=== PATIENT | female | born 1980 | race American Indian/Alaskan Native ===

== ENCOUNTER 2017-12-28 22:38 | Emergency (ER) | payer MEDICAID ==
[2017-12-28 22:38] VITALS: BMI 39.0
[2017-12-28 22:59] VITALS: TEMP 100
[2017-12-28] MEDS ORDERED: Iohexol 240 (50 ml) PO ONE (23:45)
[2017-12-28] MEDS ORDERED: Sodium Chloride 0.9% 1,000 ML IV STA (23:45)
--- NOTE | 2017-12-28 23:49 | ED PDOC ---
HPI: Abdomen Chief Complaint (Provider): RLQ pain since this morning History Per: Patient <Joe Lemons - Last Filed: 12/29/17 06:37> <Jeff Valverde - Last Filed: 12/30/17 02:11> Time Seen by Provider: 12/28/17 23:11 Chief Complaint (Nursing): Abdominal Pain Additional Complaint(s): 37 year old female presents with complaint of RLQ pain since this AM. Pain worsened this afternoon, she took Tylenol without relief. Pain is sharp, radiating to back, severe, 10/10 at present. She is unable to sit down due to pain, seen pacing around the room. Reports 2 episode of vomiting, last around 20 :00 after dinner. No fever or chills, but reports some dysuria as well, no hematuria, urinary frequency, or incontinence. No hx of nephrolithiasis. Surgical Hx x 1. (Joe Lemons) Supervising Attending Note - Supervising Attending Note The Documented history was done by the: Physician Screen Operator The documented physical exam was done by the: Physician Screen Operator The documented procedures were done by the: Physician Screen Operator - Attestation: I have personally seen and examined this patient.: Yes I have fully participated in the care of the patient.: Yes I have reviewed all pertinent clinical information: Yes <Jeff Valverde - Last Filed: 12/30/17 02:11> Past Medical History - Medical History PMH: Anemia, Asthma, Diabetes, HTN (no meds) - Surgical History Surgical History: (x 1) - Family History Family History: States: Unknown Family Hx <Joe Lemons - Last Filed: 12/29/17 06:37> <Jeff Valverde - Last Filed: 12/30/17 02:11> Vital Signs: Last Vital Signs Temp 100.0 F H 12/28/17 22:55 Pulse 79 12/29/17 03:47 Resp 18 12/29/17 03:47 BP 130/88 12/29/17 03:47 Pulse Ox 99 12/29/17 06:37 - Home Medications Home Medications: Ambulatory Orders Medication Instructions Recorded Fluconazole [Diflucan] 150 mg PO ONCE #1 tab 05/26/16 Ketoconazole 2% Cr [Nizoral] 60 gm TOP BID #1 tube 05/26/16 Nitrofurantoin Macrocrystals 100 mg PO BID #14 cap 05/26/16 [Macrobid] Naproxen [Naprosyn] 500 mg PO BID PRN #15 tablet 08/27/16 - Allergies Allergies/Adverse Reactions: Allergies Allergy/AdvReac Type Severity Reaction Status Date / Time shellfish derived Allergy ANAPHYLAXIS Verified 05/26/16 18:20 Review of Systems Constitutional: Negative for: Fever, Chills, Sweats ENT: Negative for: Ear Discharge, Nose Discharge Cardiovascular: Negative for: Chest Pain, Palpitations, Light Headedness Respiratory: Negative for: Cough, Shortness of Breath Gastrointestinal: Positive for: Nausea, Vomiting, Abdominal Pain Genitourinary Female: Positive for: Dysuria Skin: Negative for: Rash Neurological: Negative for: Confusion, Altered Mental Status, Headache <Joe Lemons - Last Filed: 12/29/17 06:37> Physical Exam - Reviewed Vital Signs Reviewed: Yes - Physical Exam Appears: Positive for: Uncomfortable Head Exam: Positive for: ATRAUMATIC, NORMAL INSPECTION, NORMOCEPHALIC Skin: Positive for: Normal Color Eye Exam: Positive for: EOMI, Normal appearance, PERRL Neck: Positive for: Painless ROM Cardiovascular/Chest: Positive for: Regular Rate, Rhythm, Chest Non Tender, Tachycardia. Negative for: Edema, JVD, Murmur Respiratory: Positive for: Normal Breath Sounds. Negative for: Crackles, Rales , Rhonchi, Wheezing Gastrointestinal/Abdominal: Positive for: Bowel Sounds (absent), Soft, Tenderness (significant RLQ tenderness, rovsings NEG, Psoas NEG). Negative for : Mass, Distended, Rebound Back: Positive for: Normal Inspection. Negative for: L CVA Tenderness, R CVA Tenderness Extremity: Negative for: Pedal Edema Neurologic/Psych: Positive for: Alert, engineer system administrator II-XII, Oriented <Joe Lemons Last Filed: 12/29/17 06:37> - Laboratory Results Result Diagrams: 12/28/17 00:10 12/29/17 01:10 - ECG O2 Sat by Pulse Oximetry: 99 <Joe Lemons Last Filed: 12/29/17 06:37> - Laboratory Results Result Diagrams: 12/28/17 00:10 12/29/17 01:10 <Jeff Valverde - Last Filed: 12/30/17 02:11> - Progress ED Course And Treament: 37 year odl female with RLQ pain and tenderness, dysuria x 1 day. rule out appendicitis, ovarian torsion, nephrolithiasis --CBC --CMP --UA --Urine Cx --Morphine 4mg IV --1L Bolus NS --Zofran 4mg ODT --CT A/P Case d/w Dr. Valverde CT A/P: TIME: 3:30 AM Appendicitis, nephrolithiasis, ovarian torsion ruled out. Patient reassessed, pain improved, no vomiting. Results of lab work and CT scan reviewed with patient. She is to follow up at [facility] in 2-3 days. ED precautions reviewed with pt. (Joe Lemons) Medical Decision Making <Joe Lemons - Last Filed: 12/29/17 06:37> <Jeff Valverde - Last Filed: 12/30/17 02:11> Medical Decision Making: findings on CT relayed to patient the findings are on left side, however pt pain was on the R side pt instructed to follow up with outpatient gynecology (Jeff Valverde) Disposition - Disposition Disposition Time: 06:37 <Joe Lemons - Last Filed: 12/29/17 06:37> <Jeff Valverde - Last Filed: 12/30/17 02:11> - Clinical Impression Clinical Impression: Abdominal pain - Disposition Condition: IMPROVED Additional Instructions: follow up with your primary doctor in 1-2 days return to the ED with any worsening or concerning symptoms Instructions: Nausea and Vomiting, Adult (DC) Forms: [employer] ([employer]), [facility] ED School/Work Excuse
[2017-12-29 00:02] LABS: SQUAMOUS EPITHIAL 2 /hpf (0-5); URINE BILIRUBIN NEGATIVE (NEGATIVE); URINE BLOOD NEGATIVE (NEGATIVE); URINE CLARITY SLIGHTY-CLOUDY (Clear); URINE COLOR YELLOW (YELLOW); URINE GLUCOSE (UA) NEG (Normal); URINE LEUKOCYTE ESTERASE NEG Leu/uL (Negative); URINE PROTEIN NEGATIVE (NEGATIVE); URINE UROBILINOGEN 0.2-1.0 mg/dL (0.2-1.0)
[2017-12-29] MEDS ORDERED: Iohexol 240 (50 ml) ONE (00:14)
[2017-12-29 00:46] LABS: BASO % 0.6 % (0.0-2.0); EOS # 0.2 K/uL (0.0-0.7); EOS % 3.3 % (0.0-4.0); HEMOGLOBIN 12.3 g/dL (12.0-16.0); LYMPH # 1.5 K/uL (1.0-4.3); LYMPH % 25.1 % (20.0-40.0); MEAN CELL VOLUME 86.4 fl (81.0-99.0); MEAN CORPUSCULAR HEMOGLOBIN 30.2 pg (27.0-31.0); MEAN CORPUSCULAR HGB CONC 34.9 g/dL (33.0-37.0); MEAN PLATELET VOLUME 10.1 fl (7.2-11.7); MONO # 0.6 K/uL (0.0-0.8); MONO % 9.6 % (0.0-10.0); NEUT # 3.7 K/uL (1.8-7.0); NEUT % 61.4 % (50.0-75.0); NRBC % 0.4 % (0.0-0.0); RBC 4.07 Mil/uL (3.80-5.20); RED CELL DISTRIBUTION WIDTH 17.2 % (11.5-14.5); WHITE BLOOD COUNT 6.1 K/uL (4.8-10.8)
[2017-12-29] MEDS ORDERED: Iohexol 300 100 ML IJ ONE (01:20)
[2017-12-29] MEDS ORDERED: Sodium Chloride 0.9% 100 ML ONE (01:20)
[2017-12-29 01:33] LABS: ALB/GLOB RATIO 0.9 (1.0-2.1); ALBUMIN 4.1 g/dL (3.5-5.0); ALT/SGPT 48 U/L (9-52); AST/SGOT 39 U/L (14-36); BLOOD UREA NITROGEN 18 mg/dl (7-17); CALCIUM 9.5 mg/dL (8.4-10.2); GFR AFRICAN-AMERICAN > 60; GFR NON-AFRICAN AMERICAN > 60
--- NOTE | 2017-12-29 02:25 | CT ---
EXAM: CT Abdomen and Pelvis With Intravenous Contrast CLINICAL HISTORY: 37 years old, female; Pain; Abdominal pain; Localized; Right lower quadrant (rlq); Prior surgery; Surgery date: 6+ months; Surgery type: ; Additional info: Rlq abd pain TECHNIQUE: Axial computed tomography images of the abdomen and pelvis with intravenous contrast. All CT scans at this facility use one or more dose reduction techniques, viz.: automated exposure control; ma/kV adjustment per patient size (including targeted exams where dose is matched to indication; i.e. head); or iterative reconstruction technique. 634 images are submitted. Oral contrast was administered.Sagittal , axial and coronal MPR reformatted images are submitted. CONTRAST: 95 mL of [id number] administered intravenously. COMPARISON: No relevant prior studies available. FINDINGS: Lung bases: Unremarkable. No mass. No consolidation. ABDOMEN: Liver: Enlarged fatty liver. Gallbladder and bile ducts: Unremarkable. No ductal dilation. Pancreas: Unremarkable. No mass. No ductal dilation. Spleen: Unremarkable. No splenomegaly. Adrenals: Unremarkable. No mass. Kidneys and ureters: Unremarkable. No solid mass. No hydronephrosis. Stomach and bowel: Diverticulosis. Small hiatal hernia with delayed emptying versus gastroesophageal reflux versus stasis. Large amount of stool in the colon. Nonspecific colonic wall thickening. Correlation with patient's clinical history of constipation versus stool related colitis is recommended. Appendix: Normal appendix. PELVIS: Bladder: Bladder distention 12 cm. Correlation with patient's voiding status is recommended. Reproductive: There is involuting hyperdense left ovarian dominant follicle measuring 2.0 cm. Trace fluid around the left ovary. Anteriorly displaced uterus. High riding ovaries. ABDOMEN and PELVIS: Intraperitoneal space: Unremarkable. No free air. No significant fluid collection. Bones/joints: No acute fracture. No dislocation. Soft tissues: There is a fat-containing umbilical hernia. Vasculature: Unremarkable. No abdominal aortic aneurysm. Lymph nodes: Unremarkable. No enlarged lymph nodes. IMPRESSION: 1. There is involuting hyperdense left ovarian dominant follicle measuring 2.0 cm. Trace fluid around the left ovary.If clinically warranted, a pelvic ultrasound may be helpful for further assessment.
[2017-12-29 03:50] VITALS: BP 130/88; PULSE 79; RESP 18; O2SAT 99
== END 2017-12-29 03:54 | disposition home or self-care (01) ==
LOC: H.ER 22:38
DX: R10.31 Right lower quadrant pain (principal); E11.9 Type 2 diabetes mellitus without complications; I10 Essential (primary) hypertension; J45.909 Unspecified asthma, uncomplicated
CPT/HCPCS: 74177; 80053; 81003; 81025; 85025; 87086; 96360; 99284; J2405; J7040; Q9966; Q9967

== ENCOUNTER 2018-06-26 01:15 | Emergency (ER) | payer SELFPAY ==
[2018-06-26 01:15] VITALS: BMI 39.0
[2018-06-26 01:24] VITALS: BP 155/106; PULSE 85; RESP 16; TEMP 98.8; O2SAT 98
--- NOTE | 2018-06-26 01:27 | ED PDOC ---
HPI: General Adult Time Seen by Provider: 06/26/18 01:26 Chief Complaint (Nursing): Abnormal Skin Integrity Chief Complaint (Provider): rash History Per: Patient Additional Complaint(s): 37-year-old female presents with itchy rash to entire body 3 days. Patient denies exposure to any known allergens. No fever or chills. Patient also has a dry patch to left third toe that is causing increasing pain. PMD: none Past Medical History Reviewed: Historical Data, Nursing Documentation, Vital Signs Vital Signs: Last Vital Signs Temp 98.8 F 06/26/18 01:21 Pulse 85 06/26/18 01:21 Resp 16 06/26/18 01:21 BP 155/106 H 06/26/18 01:21 Pulse Ox 98 06/26/18 01:21 - Medical History PMH: Anemia, Asthma, Diabetes, HTN - Surgical History Surgical History: (x 1) - Family History Family History: States: No Known Family Hx - Living Arrangements Living Arrangements: With Family - Social History Current smoker - smoking cessation education provided: Yes Alcohol: None Drugs: Denies - Home Medications Home Medications: Ambulatory Orders Medication Instructions Recorded Fluconazole [Diflucan] 150 mg PO ONCE #1 tab 05/26/16 Ketoconazole 2% Cr [Nizoral] 60 gm TOP BID #1 tube 05/26/16 Nitrofurantoin Macrocrystals 100 mg PO BID #14 cap 05/26/16 [Macrobid] Naproxen [Naprosyn] 500 mg PO BID PRN #15 tablet 08/27/16 Ketoconazole 2% Cr [Nizoral] 1 mg TOP BID #1 tube 06/26/18 - Allergies Allergies/Adverse Reactions: Allergies Allergy/AdvReac Type Severity Reaction Status Date / Time shellfish derived Allergy ANAPHYLAXIS Verified 05/26/16 18:20 Review of Systems ROS Statement: Except As Marked, All Systems Reviewed And Found Negative Constitutional: Negative for: Fever Skin: Positive for: Rash Physical Exam - Reviewed Nursing Documentation Reviewed: Yes Vital Signs Reviewed: Yes - Physical Exam Appears: Positive for: Well Skin: Positive for: Rash (scaling, plaque rash noted to torso) Eye Exam: Positive for: Normal appearance Cardiovascular/Chest: Positive for: Regular Rate, Rhythm Respiratory: Positive for: Normal Breath Sounds Extremity: Positive for: Other (scaling and flaking skin to toes of left foot, appearance consistent with tinea pedis) Neurologic/Psych: Positive for: Alert, Oriented - ECG O2 Sat by Pulse Oximetry: 98 Pulse Ox Interpretation: Normal Medical Decision Making Medical Decision Makin37 year old with rash Plan: PO benadryl Rx ketoconazole given. Patient was referred to clinic for follow up. Disposition - Clinical Impression Clinical Impression: Tinea cruris, Tinea pedis - Patient ED Disposition Is Patient to be Admitted: No Counseled Patient/Family Regarding: Diagnosis, Need For Followup, Rx Given - Disposition Referrals: [facility] [Outside] Disposition: Routine/Home Disposition Time: 01:51 Condition: STABLE Additional Instructions: Apply cream as directed. Over the counter benadryl for itching as needed. Follow up in with clinic in 2-3 days. Prescriptions: Ketoconazole 2% Cr [Nizoral] 1 mg TOP BID #1 tube Instructions: Athlete's Foot (DC), Tinea Versicolor Forms: [employer] ([place])
== END 2018-06-26 02:02 | disposition home or self-care (01) ==
LOC: H.ER 01:15
DX: B35.3 Tinea pedis (principal); B35.6 Tinea cruris; E11.9 Type 2 diabetes mellitus without complications; I10 Essential (primary) hypertension